=== PATIENT | female | born 1950 | race Caucasian/White ===

== ENCOUNTER 2018-09-25 08:23 | Emergency (ER) | payer MEDICARE ==
[~2018-09-25] VITALS: Ht 149.9 cm; Wt 54.6 kg
[2018-09-25 08:27] VITALS: BP 137/62; PULSE 63; RESP 18; Ht 149.9 cm; Wt 54.6 kg
--- NOTE | 2018-09-25 08:42 | ERD ---
ER Documentation Chief Complaint Chief Complaint pt bib family with c/o cough, runny nose aches and pains for a few days HPI 68-year-old female, presents to the emergency department, complaining of upper respiratory symptoms for 3 days, including dry cough, subjective fever, chest congestion and general malaise. Otherwise, the patient denies chest pain, shortness of breath, no leg edema. No abdominal pain or diarrhea. The patient has been taking [id number] medication without improvement of the symptoms. ROS All systems reviewed and are negative except as per history of present illness. Medications Home Meds Active Scripts Acetaminophen* (Tylenol*) 325 Mg Tablet, 2 TAB PO Q8 PRN for PAIN AND OR ELEVATED TEMP, #20 TAB Prov:LAUREANO JAMA MD 09/25/18 Promethazine Hcl* (Promethazine Hcl* Syrup) 6.25 Mg/5 Ml Syrup, 6.25 MG PO QHS PRN for COUGH, #60 ML Prov:LAUREANO JAMA MD 09/25/18 Benzonatate* (Benzonatate*) 100 Mg Capsule, 100 MG PO TID PRN for COUGH, #20 CAP Prov:LAUREANO JAMA MD 09/25/18 Amoxicillin* (Amoxicillin*) 500 Mg Cap, 500 MG PO TID for 7 Days, CAP Prov:LAURENAO JAMA MD 09/25/18 Allergies Allergies: Coded Allergies: No Known Allergy (Unverified , 09/25/18) PMhx/Soc History of Surgery: Yes (C/S, Left eye Sx, Appendectomy, [place]) Anesthesia Reaction: No Hx Miscellaneous Medical Probl: Yes (Vertigo,HTN,DM) Hx Alcohol Use: No Hx Substance Use: No Hx Tobacco Use: No Smoking Status: Never smoker FmHx Family History: No diabetes, No coronary disease Physical Exam Vitals Vital Signs Date Temp Pulse Resp B/P (MAP) Pulse Ox O2 O2 Flow FiO2 Time Delivery Rate 09/25/18 98.6 63 18 137/62 96 08:27 (87) Physical Exam Const: Vital signs stable. No acute distress Head: Atraumatic Eyes: Normal Conjunctiva ENT: Normal External Ears, Nose and Mouth. Neck: Full range of motion. No meningismus. Resp: Mild rhonchi to auscultation bilaterally Cardio: Regular rate and rhythm, no murmurs Abd: Soft, non tender, non distended. Normal bowel sounds Skin: No petechiae or rashes Back: No midline or flank tenderness Ext: No cyanosis, or edema Neur: Awake and alert Psych: Normal Mood and Affect Procedures/MDM Vital signs stable, no respiratory distress. Differential diagnosis include but not limited to: Respiratory infection bacterial/viral/fungal. Influenza, croup, bronchiolitis, pneumonitis, allergies, GERD. Less likely foreign body aspiration, cardiac related. Physical examination and clinical presentation consistent most likely with viral infection with early superimposed bacterial infection. During the ED course the patient remained stable, no new complaints. Treatment options and clinical impression discussed with the patient who agrees with management. The patient is stable to be treated outpatient and will be discharged home. Some side effects of prescribed medications (headache, rash, nausea, vomiting, diarrhea, interactions with other medications) were reviewed. The patient needs to follow up with the primary care provider in the next 48h. If symptoms persist, worsen or new symptoms develop, then patient should return to the ED immediately. Disclaimer: Inadvertent spelling and grammatical errors are likely due to EHR/dictation software use and do not reflect on the overall quality of patient care. Also, please note that the electronic time recorded on this note does not necessarily reflect the actual time of the patient encounter. Departure Diagnosis: Primary Impression: Cough Condition: Stable Additional Instructions: Muchas filippo por [facility] para turk servicio. Esperamos que en turk visita a la will de emergencia turk problema medico haya sido solucionado y que se sienta mucho mejor. Para estar seguros que tur[place] mejoria sigue en proceso, le pedimos el favor de hacer byron faustino de seguimiento medico con tur[place] doctor primario en los proximos 2-4 wolfe. Lleve con usted estos documentos y las medicinas recetadas. Si kojo sintomas empeoran, NO SE ESPERE, por favor regrese a will de emergencia INMEDIATAMENTE. En shazia que usted no tenga un mdico de atencin primaria: Llame al mdico o clnica comunitaria de referencia que aparece abajo aide las horas de consultorio para hacer byron faustino para que le vean. CLINICAS: [facility] [id number] [facility] [phone] [id number] [facility] [phone] [address] [place] [id number] [place] [phone] [id number] [facility]. [phone] LAUREANO MARCANO MD Sep 25, 2018 08:42
[2018-09-25] MEDS ORDERED: BENZ-5 PO (08:57)
[2018-09-25] MEDS ORDERED: ACET325T33 PO (08:57)
[2018-09-25] MEDS ORDERED: PROM6.2515 PO (08:57)
[2018-09-25] MEDS ORDERED: AMOX500C2 PO (08:57)
== END 2018-09-25 09:47 | disposition home or self-care (01) ==
LOC: FTE 08:23
DX: R05 Cough (principal); I10 Essential (primary) hypertension; E11.9 Type 2 diabetes mellitus without complications
CPT/HCPCS: 99283